=== PATIENT | female | born 1990 | race Caucasian/White ===

== ENCOUNTER 2020-07-10 07:43 | Inpatient (IN) | payer MEDICAID ==
[~2020-07-10] VITALS: Ht 157.5 cm; Wt 61.2 kg
[2020-07-10] MEDS ORDERED: DEXT 5%/LR + PITOCIN 20UNITS/L 1,000 ML IV SCH ×2 (07:50→11:05)
[2020-07-10] MEDS ORDERED: LACTATED RINGERS 1,000 ML IV SCH (07:50)
[2020-07-10] MEDS ORDERED: NALOXONE HCL 0.4 MG/ML 1ML VIAL IM PRN (08:00)
[2020-07-10] MEDS ORDERED: CARBOPROST TROMETHAMINE 250 MCG/ML AMPUL IM PRN (08:00)
[2020-07-10] MEDS ORDERED: PENICILLIN G POTASSIUM 5 MMU in DEXT 5% WATER 100 ML IV ONE (08:00)
[2020-07-10] MEDS ORDERED: LIDOCAINE HCL 1% 20ML VIAL (Pyxis) INJ INFIL SCH (08:00)
[2020-07-10] MEDS ORDERED: METHYLERGONOVINE MALEATE 0.2 MG/ML IM PRN (08:00)
[2020-07-10] MEDS: BUTORPHANOL TARTRATE 2 MG/ML VIAL IV PRN ×2 (08:19→10:03)
[2020-07-10 08:42] LABS: CLARITY URINE CLEAR (CLEAR); COLOR URINE YELLOW (YELLOW); KETONES URINE NEGATIVE (NEGATIVE); LEUKOCYTE ESTERASE URINE NEGATIVE (NEGATIVE); NITRITE URINE NEGATIVE (NEGATIVE); OCCULT BLOOD URINE NEGATIVE (NEGATIVE); PH URINE 6.5 (4.5-8.0); PROTEIN URINE NEGATIVE (NEGATIVE); SPECIFIC GRAVITY URINE 1.008 (1.005-1.030); UROBILINOGEN URINE 0.2 E.U./dL (0.2-1.0)
[2020-07-10 08:54] LABS: BASOPHILS % 0.7 % (0.0-2.0); EOSINOPHILS % 1.2 % (0.0-5.0); HEMATOCRIT. 35.9 % (36.0-48.0); HEMOGLOBIN. 12.4 g/dL (12.0-16.0); LYMPHOCYTES % 31.1 % (20.0-50.0); MEAN CORPUSCULAR HEMOGLOBIN 31.4 pg (28.0-32.0); MEAN CORPUSCULAR VOLUME 90.8 fL (81.0-99.0); MEAN PLATELET VOLUME 11.1 fl (7.4-10.4); MONOCYTES % 6.9 % (2.0-8.0); NEUTROPHILS % 60.1 % (40.0-76.0); PLATELET 227 x1000/uL (130-400); RED BLOOD CELL COUNT 3.96 mill/uL (4.2-5.4); RED CELL DISTRIBUTION WIDTH 13.9 % (11.6-14.6)
[2020-07-10 09:00] LABS: INR 0.9; PROTHROMBIN TIME 9.6 sec (9.6-11.0)
[2020-07-10] MEDS ORDERED: ACETAMINOPHEN WITH CODEINE 300/30MG TABLET PO PRN (11:15)
[2020-07-10] MEDS ORDERED: GLYCERIN/WITCH HAZEL LEAF MEDICATED PAD TOP PRN (11:15)
[2020-07-10] MEDS ORDERED: LANOLIN OINT 7GM TUBE TOP PRN (11:15)
[2020-07-10] MEDS ORDERED: BISACODYL 10MG SUPP PR PRN (11:15)
[2020-07-10] MEDS ORDERED: HEMORRHOIDAL SUPP PR PRN (11:15)
[2020-07-10] MEDS ORDERED: IBUPROFEN 400MG TABLET PO PRN (11:15)
[2020-07-10] MEDS ORDERED: IBUPROFEN 800MG TABLET PO PRN (11:15)
[2020-07-10 11:51] LABS: HEPATITIS B SURFACE ANTIGEN NEGATIVE
[2020-07-10] MEDS ORDERED: PENICILLIN G POTASSIUM 2.5 MMU in DEXTROSE 5% WATER 50 ML IV SCH (12:00)
[2020-07-10 12:45] VITALS: BP 99/62
[2020-07-10 13:15] VITALS: BP 104/46
[2020-07-10 14:15] VITALS: BP 100/51
[2020-07-10 15:15] VITALS: BP 104/55
[2020-07-10 20:00] VITALS: BP 108/67
[2020-07-10] MEDS ORDERED: DOCUSATE SODIUM 100MG CAPSULE PO SCH (21:00)
[2020-07-11] MEDS: DIPHENHYDRAMINE 25MG CAPSULE PO PRN ×2 (01:59→10:58)
[2020-07-11] MEDS ORDERED: IBUP-2030 PO (03:09)
[2020-07-11] MEDS ORDERED: FERR325T23 PO (03:09)
[2020-07-11 04:00] VITALS: BP 105/55
[2020-07-11 06:44] LABS: BASOPHILS % 0.6 % (0.0-2.0); EOSINOPHILS % 1.4 % (0.0-5.0); HEMATOCRIT. 31.8 % (36.0-48.0); HEMOGLOBIN. 11.1 g/dL (12.0-16.0); MEAN CORPUSCULAR HEMOGLOBIN 32.1 pg (28.0-32.0); MEAN CORPUSCULAR VOLUME 92.1 fL (81.0-99.0); MEAN PLATELET VOLUME 10.7 fl (7.4-10.4); MONOCYTES % 7.6 % (2.0-8.0); NEUTROPHILS % 58.4 % (40.0-76.0); PLATELET 198 x1000/uL (130-400); RED BLOOD CELL COUNT 3.45 mill/uL (4.2-5.4); RED CELL DISTRIBUTION WIDTH 13.9 % (11.6-14.6)
[2020-07-11] MEDS ORDERED: FERROUS SULFATE 325MG TABLET PO SCH (07:30)
[2020-07-11 08:00] VITALS: BP 97/60
[2020-07-11] MEDS ORDERED: PRENATAL VIT/FE FUMARATE/FA TABLET PO SCH (09:00)
[2020-07-11] MEDS ORDERED: TETANUS, DIPHTHERIA, PERTUSSIS VAC/PF 0.5ML (>7YR OLD) IM ONE (11:00)
== END 2020-07-11 15:30 | disposition home or self-care (01) | DRG 560 ==
LOC: EDBD 07:43 → 8 EST LDRP 07:43 → OBSVTOIN 07:43 → 8EST 12:57
PROVIDERS: ADMIT Specialist; ATTEND Specialist
PROC: 10E0XZZ Delivery of Products of Conception, External Approach (ICD-10-PCS; principal; 2020-07-10)
DX: O69.81X0 Labor and delivery complicated by cord around neck, without compression, not applicable or unspecified (principal); Z37.0 Single live birth; Z3A.38 38 weeks gestation of pregnancy
CPT/HCPCS: 36415; 81003; 85025; 86592; 86703; 86762; 86850; 86900; 87340; 90715; 99281; J0595; J2310; J2540; J2590; J3490; J7060; Q0163